=== PATIENT | female | born 1980 | race Caucasian/White ===

== ENCOUNTER → 2017-12-09 | Outpatient (CLI) | payer OTHER | LOC: RAD 13:50 | DX: M79.671 Pain in right foot (principal) ==

== ENCOUNTER → 2019-04-23 | Day surgery (SDC) | payer OTHER | LOC: MSO 07:28 | DX: Z12.11 Encounter for screening for malignant neoplasm of colon (principal); Z80.0 Family history of malignant neoplasm of digestive organs; D17.5 Benign lipomatous neoplasm of intra-abdominal organs; F41.9 Anxiety disorder, unspecified; F17.210 Nicotine dependence, cigarettes, uncomplicated | CPT/HCPCS: 00811; J2704; J7120 ==

== ENCOUNTER → 2019-11-27 | Outpatient (CLI) | payer OTHER | LOC: MAMMO 15:56 | DX: Z12.31 Encounter for screening mammogram for malignant neoplasm of breast (principal); N63.20 Unspecified lump in the left breast, unspecified quadrant ==

== ENCOUNTER → 2019-12-03 | Outpatient (CLI) | payer OTHER | LOC: RAD 08:18 | DX: N60.02 Solitary cyst of left breast (principal) ==

== ENCOUNTER → 2020-06-02 | Outpatient (CLI) | payer OTHER | LOC: MAMMO 06:57 | DX: N60.02 Solitary cyst of left breast (principal) ==

== ENCOUNTER 2020-10-09 13:00 | Outpatient (RCR) | payer OTHER | END 2020-11-11 17:00 | disposition home or self-care (01) | LOC: OT 13:00 | DX: Z48.01 Encounter for change or removal of surgical wound dressing (principal); M18.12 Unilateral primary osteoarthritis of first carpometacarpal joint, left hand; Z96.692 Finger-joint replacement of left hand; Z47.1 Aftercare following joint replacement surgery ==

== ENCOUNTER → 2021-01-19 | Outpatient (CLI) | payer OTHER | LOC: MAMMO 07:30 | DX: Z12.31 Encounter for screening mammogram for malignant neoplasm of breast (principal) ==

== ENCOUNTER → 2021-09-14 | Outpatient (CLI) | payer OTHER | LOC: RAD 08:51 | DX: R60.0 Localized edema (principal) | CPT/HCPCS: Q9967 ==

== ENCOUNTER → 2022-04-13 | Outpatient (CLI) | payer OTHER | LOC: MAMMO 10:00 | DX: Z12.31 Encounter for screening mammogram for malignant neoplasm of breast (principal); R92.8 Other abnormal and inconclusive findings on diagnostic imaging of breast ==

== ENCOUNTER → 2022-04-15 | Outpatient (CLI) | payer OTHER | LOC: MAMMO 11:33 | DX: N63.10 Unspecified lump in the right breast, unspecified quadrant (principal); N60.02 Solitary cyst of left breast ==

== ENCOUNTER → 2022-04-19 | Outpatient (CLI) | payer OTHER | LOC: RAD 07:37 | DX: N60.11 Diffuse cystic mastopathy of right breast (principal) | CPT/HCPCS: 15989; 15990; A4648 ==

== ENCOUNTER → 2023-08-10 | Outpatient (CLI) | payer OTHER | LOC: MAMMO 13:25 | DX: Z12.31 Encounter for screening mammogram for malignant neoplasm of breast (principal) ==

== ENCOUNTER → 2024-05-14 | Day surgery (SDC) | payer OTHER ==
[~2024-05-14] MED LIST: fentaNYL 100 MCG/2 ML VIAL ONE
== END | disposition home or self-care (01) ==
LOC: MSO 09:47
DX: Z12.11 Encounter for screening for malignant neoplasm of colon (principal); Z80.0 Family history of malignant neoplasm of digestive organs; F17.210 Nicotine dependence, cigarettes, uncomplicated
CPT/HCPCS: 00812; J2704; J3010; J7120